=== PATIENT | female | born 1975 | race Caucasian/White ===

== ENCOUNTER 2017-11-21 07:28 | Outpatient (CLI) | payer MEDICAID ==
--- NOTE | 2017-11-21 09:33 | ULT ---
PELVIC ULTRASOUND TRANSVAGINAL WITH DOPPLER: History: Pelvic pain. Comparison: None. FINDINGS: Real-time grayscale and color doppler spectral analysis of the pelvis performed with transabdominal a nd transabdominal approach. The uterus measures 2.6 x 3.8 x 5.5 cm. Endometrial thickness is less than 7 mm. Right ovary measures 4 x 2.4 x 3.5 cm. There is a cyst measuring 2 cm. Left ovary measures 7 x 4.2 x 6 cm. There are cysts measuring up to 5 cm. Numerous small cysts are present in the left ovary. Small amount of free fluid in the pelvis. IMPRESSION: 1. Multiple cysts in the left ovary, the largest measures 5 cm. Most recent guidelines recommend a fo llow up ultrasound in one year. 2. Small amount of free fluid likely physiologic. 3. Small calcification adjacent to the left ovary may be phleboliths within distended pelvic vessels. Pelvic MRI may be beneficial if clinically warranted. POS: [facility]
== END 2017-11-21 07:29 | disposition home or self-care (01) ==
LOC: ULT 07:28
PROVIDERS: ATTEND Physician Assistant
DX: R10.2 Pelvic and perineal pain (principal); N83.202 Unspecified ovarian cyst, left side; R93.8 Abnormal findings on diagnostic imaging of other specified body structures
CPT/HCPCS: 76856